=== PATIENT | female | born 1950 | race Two or more races ===

== ENCOUNTER 2020-03-18 08:20 | Day surgery (SDC) | payer OTHER ==
[~2020-03-18 08:20] MED LIST: ALENDRONATE SOD70 MG; ATACAND32 MG; ATORVASTATIN CA20 MG; MAXIMUM D3325 MCG; PANTOPRAZOLE SO40 M2; PEPCID AC20 MG; UNITHROID50 MCG; V R FATIGUE RE
== END 2020-03-18 13:55 | disposition home or self-care (01) ==
LOC: CIR.AMB 08:20
PROVIDERS: ATTEND Colon & Rectal Surgery
DX: K60.5 Anorectal fistula (principal); Z20.828 Contact with and (suspected) exposure to other viral communicable diseases